=== PATIENT | female | born 1950 | race Caucasian/White ===

== ENCOUNTER 2018-01-09 05:49 | Day surgery (SDC) | payer OTHER ==
[~2018-01-09] VITALS: Ht 154.9 cm; Wt 73.5 kg
[2018-01-09] MEDS ORDERED: CEFAZOLIN SODIUM 1 GM/D5W PM 50 ML IV SCH (07:50)
[2018-01-09] MEDS ORDERED: LORA10TA19 PO (08:32)
[2018-01-09] MEDS ORDERED: INSU100S53 SC (08:32)
[2018-01-09] MEDS ORDERED: INSU100S45 SUBQ (08:32)
[2018-01-09] MEDS ORDERED: HYDR-3293 PO (08:32)
[2018-01-09] MEDS ORDERED: ASPI81CT89 PO (08:32)
[2018-01-09] MEDS ORDERED: IBUP-2213 PO (08:32)
[2018-01-09] MEDS ORDERED: METF1000 PO (08:32)
[2018-01-09] MEDS ORDERED: SIMV20TA1 PO (08:32)
[2018-01-09] MEDS ORDERED: ONDANSETRON 4 MG/2 ML VIAL ONE ×2 (09:06→12:55)
[2018-01-09] MEDS ORDERED: SUCCINYLCHOLINE CHLORIDE 200 MG/10 ML VIAL IVP ONE (09:06)
[2018-01-09] MEDS ORDERED: DEXAMETHASONE 4 MG/ML VIAL ONE (09:06)
[2018-01-09] MEDS ORDERED: GLYCOPYRROLATE 0.2 MG/ML VIAL ONE (09:06)
[2018-01-09] MEDS ORDERED: ROCURONIUM 50 MG/5 ML VIAL IV ONE (09:06)
[2018-01-09] MEDS ORDERED: ePHEDrine 50 MG/ML VIAL ONE (09:06)
[2018-01-09] MEDS ORDERED: KETOROLAC 30 MG/ML VIAL ONE (09:06)
[2018-01-09] MEDS ORDERED: NEOSTIGMINE 1:1000 10 MG/10 ML VIAL ONE (09:06)
[2018-01-09] MEDS ORDERED: PROPOFOL 200 MG/20 ML VIAL IV ONE (09:06)
[2018-01-09] MEDS ORDERED: LIDOCAINE 2% 100 MG/5 ML SYR IVP ONE (09:06)
[2018-01-09] MEDS ORDERED: PHENYLEPHRINE ONE (09:06)
[2018-01-09] MEDS ORDERED: DESFLURANE 240 ML BTL INH ONE (09:06)
[2018-01-09] MEDS ORDERED: BUPIVACAINE-MPF/EPI 0.25% 30 ML VIAL INJ ONE (09:10)
[2018-01-09] MEDS ORDERED: fentaNYL 0.05 MG/ML VIAL ONE (09:19)
[2018-01-09] MEDS ORDERED: MIDAZOLAM 2 MG/2 ML VIAL ONE (09:19)
[2018-01-09] MEDS ORDERED: ONDANSETRON 4 MG/2 ML VIAL IVP PRN ×2 (09:40→12:55)
[2018-01-09] MEDS ORDERED: HYDROmorphone 1 MG/ML AMP IVP PRN (09:40)
[2018-01-09] MEDS: HYDROmorphone PFS 2 MG/ML SYR ONE ×2 (11:20→11:30)
[2018-01-09] MEDS ORDERED: INSULIN REGULAR, HUMAN 100 UNIT/ML VIAL SUBQ ONE (13:15)
[2018-01-09] MEDS ORDERED: INSULIN REGULAR, HUMAN 100 UNIT/ML VIAL SUBQ SCH (13:19)
== END 2018-01-09 13:30 | disposition home or self-care (01) ==
LOC: MDS 05:49 → MMU 06:58 → MDS 13:30
PROVIDERS: ATTEND Internal Medicine Gastroenterology
DX: K80.10 Calculus of gallbladder with chronic cholecystitis without obstruction (principal); I10 Essential (primary) hypertension; E11.9 Type 2 diabetes mellitus without complications; E78.5 Hyperlipidemia, unspecified; F32.9 Major depressive disorder, single episode, unspecified; Z79.82 Long term (current) use of aspirin; Z79.1 Long term (current) use of non-steroidal anti-inflammatories (NSAID); Z79.899 Other long term (current) drug therapy; Z90.49 Acquired absence of other specified parts of digestive tract; Z79.4 Long term (current) use of insulin; Z86.73 Personal history of transient ischemic attack (TIA), and cerebral infarction without residual deficits
CPT/HCPCS: 36415; 47562; 71045; 82374; 82948; 86886; 86900; 86901; 93005; C1887; J0330; J0690; J1100; J1170; J1815; J1885; J2001; J2250; J2405; J2704; J2710; J3010; J3490; J7030; Q0092